=== PATIENT | female | born 1990 ===

== ENCOUNTER 2020-09-28 22:11 | Inpatient (IN) | payer SELFPAY ==
[2020-09-28] MEDS ORDERED: Ringers Lactate 1,000 ML IV PRN (22:14)
[2020-09-28] MEDS ORDERED: METHYLERGONOVINE 0.2MG/ML AMP IM PRN (22:14)
[2020-09-28] MEDS ORDERED: MEPERIDINE HCL 25 MG/ML SYR IV PRN (22:14)
[2020-09-28] MEDS ORDERED: PROMETHAZINE INJ 25 MG/ML AMP IM PRN (22:14)
[2020-09-28] MEDS ORDERED: BUTORPHANOL 1 MG/ML INJ IV PRN (22:14)
[2020-09-28] MEDS ORDERED: CARBOPROST TROME 250 MCG/ML IM PRN (22:14)
[2020-09-28 22:49] VITALS: BMI 26.9
[2020-09-28] MEDS ORDERED: OXYTOCIN/LR 20 UNIT/1,000 ML BAG IV SCH (23:00)
[2020-09-28] MEDS ORDERED: Ringers Lactate 1,000 ML IV SCH (23:00)
[2020-09-28 23:15] LABS: Absolute Lymphocytes (CBC) 1.9 K/uL (0.7-4.9); Basophils % 0.2 % (0-1.3); Hematocrit 31.3 % (36.0-45.0); Lymphocytes % 25.4 % (15.3-44.8); MPV 11.1 fL (7.6-11.3); RBC Red Blood Cell Count 3.39 M/uL (3.86-4.86)
[2020-09-29] MEDS ORDERED: LIDOCAINE 1% MPF 30 ML VIAL ONE (02:04)
[2020-09-29] MEDS ORDERED: IBUPROFEN 600 MG TAB PO PRN (03:16)
[2020-09-29] MEDS ORDERED: ACETAMINOPHEN 500 MG TAB PO PRN (03:16)
[2020-09-29] MEDS ORDERED: Oxycodone HCl/Acetaminophen 1 TAB TAB PO PRN ×2 (03:16→03:18)
[2020-09-29] MEDS ORDERED: LIDOCAINE 1% MPF 30 ML VIAL SQ ONE (03:29)
[2020-09-29 04:55] LABS: RPR (Rapid Plasma Reagin) NON-REACT (NON-REACT)
--- NOTE | 2020-09-29 05:59 | DN ---
Surgeon: Blake Barksdale MD A 29-year-old 3, para 2, followed antepartum, noted to be diabetic but in very good control, also noted to be anemic, which did not respond to iron therapy during the . Rh positive, im mune to rubella, negative strep, negative COVID. Scheduled for induction this Sunday, came in with r uptured membranes and early labor. Used Lamaze breathing techniques, went completely natural, went r apidly to complete second stage of about 25-30 minutes. Spontaneous vaginal delivery of a 6-pound 15 -ounce female, Apgars 9 and 9. No episiotomy, 2 very small first-degree lacerations, more mucosal te ars sutured with 3-0 chromic, 1 on the right side of the introitus, 3 running lock stitches, 1 on the upper left inside the labia minora, 1 single [id number] stitch 3-0 chromic. Schultze delivery of the placenta, inspected, noted to be intact and normal. Less than 200 mL blood loss. Tolerated a ll procedures well. Final Diagnoses: Term intrauterine , maternal diabetes, maternal anemia, spontaneous labor, vaginal delivery. NBC/MODL Voice ID: [id number] Report ID: [id number]
--- NOTE | 2020-09-29 13:56 | DS ---
Hospital Course: A 29-year-old, 3, para 2, 38 weeks 5 days, came in with spontaneous labor w ith rupture of membranes, delivered a 6-pound 15-ounce female, Apgars 9 and 9 after second stage abou t 25 minutes. Had 4 stitches total of 3-0 chromic under local infiltration, 3 on the right side of t he introitus, 1 on the left side upper part of the labia minora. Schultze delivery of the placenta w ith 200 mL or less blood loss. Rh positive, immune to rubella. Negative COVID. Negative strep. Po stpartum; afebrile, ambulating and voiding. Lochia is normal. Will be dismissed probably tomorrow m orning to return to my office in 6 weeks for followup to report any temperature elevation of 100 degr ees or greater, severe pain, heavy bleeding, or any other type of abnormalities. She has no question s or problems this morning, but we will see her again tomorrow. Final Diagnoses: Term intrauterine at 38 weeks 5 days, spontaneous labor, rupture of membr anes, vaginal delivery. MICHELE/SOFÍA Voice ID: [id number] Report ID: [id number]
--- NOTE | 2020-09-30 05:42 | PREOPHP ---
Date of Admission: 09/28/2020 History Of Present Illness: A 29-year-old 3, para 2, scheduled for induction on Sunday. She comes in early labor, went rapidly to 9 cm and is stable at this point. Family History: Noncontributory other than the father had diabetes and 1 aunt had cancer. Past Medical History: No previous surgeries. Allergies: NO ALLERGIES. Medications: No medications prior to admission other than vitamins and iron. She has been anemic and shows signs of diabetes. Social History: She does not smoke. Physical Examination: HEENT: Clear. Pupils are equal, round, reactive to light and accommodation. Conjunctivae well perf used. No oral, lingual, or buccal lesions. Chest and Lungs: Clear. Heart: Without murmurs, thrills, heaves, or rubs. Extremities: Clear without edema, cyanosis, or clubbing. Pelvic: Exam as stated 9 cm, vertex, -0 station. Anticipate delivery relatively soon. She is rubel la immune. Rh positive, COVID negative, strep negative. NBC/[facility]L Voice ID: [id number]
[2020-09-30 07:25] VITALS: BP 115/58; TEMP 97.8
[2020-10-02 22:18] LABS: HBsAG Nonreactive (Nonreactive)
== END 2020-09-30 08:10 | disposition home or self-care (01) | DRG 807 ==
LOC: 2ND-WC 22:11
PROVIDERS: ADMIT Specialist; ATTEND Specialist
PROC: 10E0XZZ Delivery of Products of Conception, External Approach (ICD-10-PCS; principal; 2020-09-28)
PROC: 3E033VJ Introduction of Other Hormone into Peripheral Vein, Percutaneous Approach (ICD-10-PCS; 2020-09-28)
PROC: 0HQ9XZZ Repair Perineum Skin, External Approach (ICD-10-PCS; 2020-09-28)
DX: O24.429 Gestational diabetes mellitus in childbirth, unspecified control (principal); Z37.0 Single live birth; O99.02 Anemia complicating childbirth; O70.0 First degree perineal laceration during delivery; Z3A.38 38 weeks gestation of pregnancy; Z20.822 Contact with and (suspected) exposure to COVID-19
CPT/HCPCS: 36415; 85025; 86592; 86901; 87340; J2210; J2590; J7120; U0003